=== PATIENT | male | born 1950 | race Caucasian/White ===

== ENCOUNTER 2017-01-10 11:25 | Emergency (ER) | payer BC ==
--- NOTE | 2017-01-10 12:09 | EDPHY ---
H & P Stated Complaint: Both legs weak x several days; calves are sensitive L>R Time Seen by Provider: 01/10/17 11:49 HPI/ROS: CHIEF COMPLAINT: Left calf pain and swelling HISTORY OF PRESENT ILLNESS: The patient is a 66 year old male who presents to the emergency department with left calf pain. The patient noticed muscle soreness and aching in his thighs earlier this week. Yesterday his left calf started hurting, in a well localized area. He attributed his pain to working out. He took Ibuprofen and his wrapped his left calf. This morning the pain became more severe and he noticed swelling on the left ankle and foot. He think s it may have been from the compression on his calf. He is having difficulty ambulating secondary to pain. He denies chest pain or shortness of breath. The patient takes 81mg Aspirin daily. REVIEW OF SYSTEMS: Aside from elements discussed in the HPI, a comprehensive 10-point review of systems was reviewed and is negative. PAST MEDICAL HISTORY: CAD, Bypass surgery 2005, Hypertension. Possible TIA SOCIAL HISTORY: Occasional cigarette smoker. Occasional alcohol. VITAL SIGNS: Reviewed by me GENERAL: Well-developed, well-nourished, resting comfortably in no respiratory distress. HEENT: Atraumatic. Eyes: No icterus, no injection. Mouth: moist mucous membranes. No erythema or lesions. Neck: supple with no adenopathy. LUNGS: Clear to auscultation bilaterally, no wheezes, rhonchi or rales. CARDIAC: Regular rate and rhythm, no rubs, murmurs or gallops. ABDOMEN: Soft, nontender, nondistended, bowel sounds normal. BACK: No CVA tenderness. EXTREMITIES: Left lower extremity: Slightly swollen on the foot and ankle. No pitting edema. Slightly erythematous. Area of exquisite tenderness on medial calf. No tenderness in popliteal fossa. Normal sensation. DP/PT pulse intact. Right lower extremity normal. NEURO: Alert and oriented, grossly nonfocal. SKIN: Warm and dry, no rash. PSYCHIATRIC: Normal mentation, no agitation. Portions of this note were transcribed by a medical diagnostic radiographer. I personally performed a history, physical exam, medical decision making, and confirmed accuracy of information the transcribed note. Source: Patient - Personal History Current Tetanus Diphtheria and Acellular Pertussis (TDAP): Yes Tetanus Vaccine Date: 04/16 - Medical/Surgical History Hx Cardiac Disease: Yes Other PMH: CAD. CABG. bladder ca - Social History Smoking Status: Former smoker Constitutional: Initial Vital Signs Temperature (C) 36.4 C 01/10/17 11:28 Heart Rate 85 01/10/17 11:28 Respiratory Rate 18 01/10/17 11:28 Blood Pressure 142/89 H 01/10/17 11:28 O2 Sat (%) 95 01/10/17 11:28 O2 Delivery Mode Room Air Allergies/Adverse Reactions: Penicillins Allergy (Severe, Verified 01/10/17 11:28) Anaphylaxis Home Medications: Medication Instructions Recorded Aspirin [Aspirin 81mg (OTC)] 81 mg PO HS 03/29/13 ESOMEPRAZOLE MAG TRIHYDRATE 40 mg PO DAILY 03/29/13 [NEXIUM] Metoprolol Succinate Xr [Toprol Xl 100 mg PO DAILY 03/29/13 100 mg (RX)] Niacin ER [Niaspan 1000 mg (RX)] 1,000 mg PO HS 03/29/13 Phelps-3 Fatty Acids [Fish Oil 1000 3,000 mg PO HS 03/29/13 mg (OTC)] amLODIPine BESYLATE [Norvasc 5 mg 5 mg PO DAILY 03/29/13 (RX)] Atorvastatin Calcium [Lipitor 40 40 mg PO 01/10/17 mg (*)] Hydrocodone/APAP 5/325 [Hawthorne 1 tab PO Q6H PRN #10 tab 01/10/17 5/325 (RX)] Valsartan [Diovan (*)] 40 mg PO 01/10/17 oxyCODONE/APAP 5/325 [Percocet 0.5 - 1 tab PO QID PRN #10 tab 01/10/17 5/325 (*)] Medical Decision Making - Diagnostics Imaging: US scan of the left lower extremity was obtained. I viewed the images independently on the PACS system. I discussed the results of the study with the radiologist. Impression: Superficial thrombophlebitis in the left calf soleal vein. ED Course/Re-evaluation: The patient received 0.5mg IV Dilaudid. Lower extremity US was ordered. Labs normal with respect to electrolytes. 1:15 pm: US shows superficial thrombophlebitis. I discussed findings with the patient. He understands and and will arrange followup with his primary care physician. Patient does have moderate pain. No fever, no significant leukocytosis, no neurologic compromise. Very tender during ultrasound exam when probe was examining over clot. Do not feel further evaluation warranted at this time. Patient understand treatment for this superficial thromboemboli. Stressed importance of follow up if not improving as expected. Return to ED if worse. Differential Diagnosis: Diff dx considered included cellulitis, DVT, superficial thrombus, muscle sprain or tear, electrolyte abnormalities, deep space infection. - Data Points Laboratory Results: Laboratory Results 01/10/17 11:55 01/10/17 11:55 Medications Given: Discontinued Medications Hydromorphone HCl (Dilaudid) 0.5 mg IVP EDNOW ONE Stop: 01/10/17 12:15 Last Admin: 01/10/17 12:39 Dose: 0.5 mg Sodium Chloride (Ns) 1,000 mls @ 0 mls/hr IV ONCE ONE PRN Reason: Wide Open Stop: 01/10/17 13:24 Last Admin: 01/10/17 13:32 Dose: Not Given Departure - Departure Disposition: Home, Routine, Self-Care Clinical Impression: Superficial thrombophlebitis of left leg, Pain of left calf Condition: Good Instructions: Superficial Thrombophlebitis (ED) Additional Instructions: 1. Your ultrasound shows a superficial thrombophlebitis. 2. I recommend Ibuprofen (Motrin, Advil) or Naproxen Sodium (Aleve) for pain and anti-inflammatory effects. You may take either one, but do not take both. Your dose is: Ibuprofen 600 mg every 6-8 hours with food. OR Naproxen Sodium (Aleve) 220 mg every 12 hours. 3. Apply warm compresses to the leg to help with pain. 4. Take Percocet/ oxycodone as directed for severe pain. 5. Followup with your primary care physician for reevaluation in 2-3 days if you 're not improving. Be seen sooner if you are worse. Referrals: Feng Hughes MD [Primary Care Provider] - As per Instructions Prescriptions: Hydrocodone/APAP 5/325 [Hawthorne 5/325 (RX)] 1 tab PO Q6H PRN #10 tab PRN Reason: Pain oxyCODONE/APAP 5/325 [Percocet 5/325 (*)] 0.5 - 1 tab PO QID PRN #10 tab PRN Reason: Pain Report Scribed for: Christa Saul Report Scribed by: Rena Almendarez Date of Report: 01/10/17 Time of Report: 12:09
[2017-01-10] MEDS ORDERED: HYDROmorphONE/DILAUDID 1 MG/ML SYR IVP ONE (12:14)
[2017-01-10] MEDS ORDERED: NS 1,000 ML IV ONE (13:23)
[2017-01-10 13:32] LABS: % IMMATURE GRANULYOCYTES 1.1 % (0.0-1.1); ABSOLUTE IMMATURE GRANULOCYTES 0.11 10^3/uL (0.00-0.10); ADD DIFF? NO; ADD MORPH? NO; ADD SCAN? NO; ATYPICAL LYMPHOCYTE FLAG 0 (0-99); FRAGMENT RBC FLAG 0 (0-99); HEMATOCRIT 43.6 % (40.0-51.0); HEMOGLOBIN 15.6 g/dL (13.7-17.5); LEFT SHIFT FLG 20 (0-99); LIPEMIA HEMOLYSIS FLAG 90 (0-99); MEAN CELL HEMOGLOBIN 34.1 pg (27.9-34.1); MEAN CELL HEMOGLOBIN CONCENTR. 35.8 g/dL (32.4-36.7); MEAN CELL VOLUME 95.2 fL (81.5-99.8); PLATELET CLUMPS FLAG 0 (0-99); PLATELET COUNT 346 10^3/uL (150-400); RED BLOOD CELL COUNT 4.58 10^6/uL (4.40-6.38); RED CELL DISTRIBUTION WIDTH 11.5 % (11.5-15.2)
[2017-01-10 13:39] LABS: ANION GAP 12 mEq/L (8-16); CALCIUM 9.4 mg/dL (8.5-10.4); CARBON DIOXIDE 27 mEq/l (22-31); CHLORIDE 94 mEq/L (97-110); CREATININE 0.9 mg/dL (0.7-1.3); GLOMERULAR FILTRATION RATE > 60; GLUCOSE 126 mg/dL (70-100); POTASSIUM 3.9 mEq/L (3.5-5.2); SODIUM 133 mEq/L (134-144)
[2017-01-10 13:54] VITALS: BP 126/73; PULSE 80; RESP 20; TEMP 97.7; O2SAT 91
== END 2017-01-10 13:54 | disposition home or self-care (01) ==
DX: I80.02 Phlebitis and thrombophlebitis of superficial vessels of left lower extremity (principal); I10 Essential (primary) hypertension; I25.810 Atherosclerosis of coronary artery bypass graft(s) without angina pectoris; Z85.51 Personal history of malignant neoplasm of bladder; Z79.82 Long term (current) use of aspirin; Z87.891 Personal history of nicotine dependence
CPT/HCPCS: 96374; J1170

== ENCOUNTER → 2017-01-13 | Outpatient (CLI) | payer BC | LOC: FIMAGING 17:16 | PROVIDERS: ATTEND Family Medicine | DX: M79.662 Pain in left lower leg (principal); Z86.718 Personal history of other venous thrombosis and embolism ==